=== PATIENT | female | born 1940 | race Caucasian/White ===

== ENCOUNTER 2018-03-03 08:06 | Inpatient (IN) | payer MEDICARE ==
[2018-03-03 08:38] LABS: #Eosinphils 0.1 thou/uL (0.0-0.7); #Lymphocytes 1.4 thou/uL (1.20-3.40); #Monocytes 0.5 thou/uL (0.11-0.59); #Neutrophils 5.5 thou/uL (1.40-6.50); %Basophils 0.6 % (0.0-1.0); %Eosinophils 1.4 % (0.0-10.0); %Lymphocytes 18.4 % (21.0-51.0); %Monocytes 6.9 % (0.0-10.0); %Neutrophils 72.7 % (42.0-75.0); Hemoglobin 13.3 g/dL (12.0-16.0); Mean Corpuscular HGB CONC 32.9 g/dL (32.0-36.0); Mean Corpuscular Hemoglobin 28.6 pg (27.0-31.0); Mean Corpuscular Volume 86.9 fl (81.0-99.0); Mean Platelet Volume 8.3 fL (7.4-10.4); Platelet Count 186 thou/uL (130-400); RBC Distribution Width 12.5 % (11.5-14.5); Red Blood Cell (RBC) Count 4.66 mill/uL (4.20-5.40); White Blood Cell (WBC) Count 7.6 thou/uL (4.8-10.8)
[2018-03-03 08:40] LABS: PTT 28.1 SEC (22.9-36.1); Prothrombin Time 12.8 SEC (12.0-14.7)
[2018-03-03 08:46] LABS: ALT (SGPT) 14 U/L (8-55); AST (SGOT) 14 U/L (5-34); Alkaline Phosphatase 103 U/L (40-150); Anion Gap 14 mmol/L (10-20); BUN (Urea Nitrogen) 14 mg/dL (9.8-20.1); Bilirubin, Total 0.5 mg/dL (0.2-1.2); Calc. Creatinine Clearance 0 mL/min (70-130); Calcium 9.4 mg/dL (7.8-10.44); Carbon Dioxide 26 mmol/L (23-31); Chloride 102 mmol/L (98-107); Estimated GFR-MDRD 57; Globulin 2.9 g/dL (2.4-3.5); Glucose 336 mg/dL (83-110); Potassium 4.3 mmol/L (3.5-5.1); Protein, Total 6.9 g/dL (6.0-8.3); Sodium 138 mmol/L (136-145)
[2018-03-03 08:50] LABS: Troponin I 0.012 ng/mL (< 0.028)
--- NOTE | 2018-03-03 08:58 | CT ---
CT OF THE HEAD WITHOUT CONTRAST: DATE: 03/03/18. COMPARISON: None. HISTORY: Right-sided drift, weakness, stroke alert. TECHNIQUE: Serial axial CT imaging obtained at 5 mm intervals from the vertex through the skull base without con trast. FINDINGS: Small foci of hypodensity noted in the periventricular white matter anteriorly, right greater than le ft, suggesting small-vessel disease. Imaged paranasal sinuses and mastoid air cells well aerated. N o displaced calvarial fracture. No intracranial hemorrhage, midline shift, mass effect, or ventricul ar enlargement. IMPRESSION: No intracranial hemorrhage. Results called to Dr. Nicole 8:20 a.m., 03/03/18. CODE CR POS: MANIS[facility]
[2018-03-03 10:21] LABS: Bilirubin Negative (Negative); Blood, Urine Negative (Negative); Clarity CLEAR (Clear); Glucose, Urine (Dipstick) >=1000 mg/dL (Negative); Leukocyte Moderate (Negative); Nitrite Negative (Negative); Protein, Urine (Dipstick) Negative (Neg-Trace); Specific Gravity, Urine 1.042 (1.002-1.036); Urobilinogen 0.2 mg/dL (0.2-1.0); pH, Urine 6.5 (5.0-9.0)
[2018-03-03 10:24] LABS: Bacteria/HPF None Seen HPF (None Seen); Hyaline Casts/LPF 0-3 HYALINE CAST LPF (0-3 Hyaline); Pathc Cast-AUWi Flag 0.14 (0-2.49); RBC/HPF 0-3 HPF (0-3); Squamous Epithelial 0-3 HPF (0-3); WBC/HPF 21-50 HPF (0-3)
--- NOTE | 2018-03-03 10:37 | CT ---
CONTRAST ENHANCED CTA CAROTID AND INTRACRANIAL CTA: DATE: 03/03/18. HISTORY: Stroke with left-sided symptoms. FINDINGS: A contrast-enhanced CTA is performed. Two-D and 3D reconstructed images performed. Contrast-enhanced CTA carotid and intracranial CT was performed. The aortic arch contains some calcifications. The right brachiocephalic artery is patent. The right and left common carotid arteries are patent. The right and left vertebral arteries are tortuous but patent. Good flow is seen in the distal internal carotid arteries. Right and left internal carotid arteries are patent. Intracranial portion of the ICA including JOSSELYN, MCA vessels are patent. Vertebrobasilar arteries are patent. Posterior cerebral artery is patent. IMPRESSION: Normal carotid and intracranial CTA. Findings called to Dr. Nicole at 8:43 a.m. on 03/03/18. CODE CR
[2018-03-03] MEDS ORDERED: ISOVUE-370 76%-LOCM 1 ML ONE (11:20)
[2018-03-03] MEDS ORDERED: Labetalol HCl 100 MG/20 ML VIAL SLOW IVP PRN (11:33)
[2018-03-03] MEDS ORDERED: Bisacodyl 5 MG TAB PO PRN (11:36)
[2018-03-03 12:01] LABS: Troponin I 0.013 ng/mL (< 0.028)
[2018-03-03 12:18] VITALS: BMI 31.4
[2018-03-03] MEDS ORDERED: Dextrose 5% in Water 1,000 ML IV PRN (13:14)
[2018-03-03] MEDS ORDERED: Dextrose 50% Abboject 50 ML SYRINGE SLOW IVP PRN (13:14)
--- NOTE | 2018-03-03 14:23 | HP ---
CHIEF COMPLAINT: Right-sided weakness. HISTORY OF PRESENT ILLNESS: The patient is a 77-year-old female who has a history of hypertension, d iabetes, and hyperlipidemia. The patient reports that over the last several months she has become la zy about putting medications in her pillbox and has essentially stopped taking them. These include b asically everything, but her metformin. She reports she has been checking her blood sugars at home a nd they have been running in the 250-260 range. Also notes specifically, the patient has not been ta corinne her aspirin. The patient states that she awakened this morning feeling normally, but within a c ouple hours, she noticed when she turned to the right to go to the trash can, she felt like something was not right on her right side. She subsequently felt like she was being pushed to her right side and was dragging her right foot a bit. The right side of her face felt "flushed" and she believes franco grider may have had some slurring of her speech. Her daughter, Helen, who is with her indicates she luis eves her speech is slurred as well. Initially, her symptoms were somewhat intermittent, but became m ore fixed. Presently, she continues to feel like the right side of her face is not normal. The patient states that 1 week ago she was having some trouble with hemorrhoids which she believes is secondary to some chronic constipation. She went to an urgent care clinic and was subsequently refe rred to a surgeon. She was not able to see the surgeon because of some telephone issues at her home. She was unable to set up the appointment. She stated that she has been frustrated with her primary doctor and has decided to switch to Dr. Morton. She went to see him on the and he gave her a "cleanse." She did not have a bowel movement with that until the second day when she took an over-th e-counter laxative. She states that she has been generally constipated, but did have a bowel movemen t yesterday. She also reports that she feels like she has a grapefruit size "knot" or "pod" in her l eft epigastrium. She can only feel this when she is in a standing position, but not when she is supi ne. She has no pain associated with that. REVIEW OF SYSTEMS: General: Denies any changes in her weight or sleep patterns. The patient report s some mild issues with her hearing. No problems with vision, taste or smell. Gastrointestinal: Th e patient has no difficulties with swallowing or diarrhea, but does have the report of constipation. Cardiovascular: Denies chest pain, palpitations or Peripheral edema. Pulmonary. The patient anuradha es cough, shortness of breath or wheezing. Genitourinary: Patient denies dysuria, frequency, noctur ia or incontinence, but does have some urgency. The patient denies any rashes or lesions, other than some ant bites on her legs. Neurologic: The patient denies numbness, weakness or tingling other th an those things mentioned in the history of present illness. Psychiatric: The patient does admit to some anxiety. She is a worrier and worries about many things including her health and believes that has made her a bit depressed. Endo she denies polyuria, polydipsia. PAST MEDICAL HISTORY: Notable for a cholecystectomy, which was due to advanced gallbladder disease 1 year ago. Subsequently, the patient became somewhat septic and was admitted to the hospital with wh at looked like probably pneumonia. She had some demand ischemia at that time and states that she did subsequently undergo a stress test by Dr. Campuzano that was negative. She also has hypertension, di abetes mellitus, chronic constipation, hyperlipidemia. PAST SURGICAL HISTORY: Cholecystectomy, laparoscopic BTL. FAMILY HISTORY: Father with some alcohol-related disease. Her mother at almost 102 years of age. She also has a brother who has had alcohol issues and one that of heart disease and 1 s ister who with dementia. She still has 4 siblings, all are living. SOCIAL HISTORY: Patient denies use of tobacco, alcohol or drugs. She is . ALLERGIES: CODEINE. MEDICATIONS: Current medications have not been fully confirmed yet, but appear to be Glucophage 500 b.i.d., glipizide 5 mg every day, sertraline dose not known, potassium 10 mEq every day, omeprazole 2 0 mg every day, Lasix 20 every day, enalapril 10 every day, Coreg 3.125 b.i.d., atorvastatin 20 mg at bedtime, and aspirin 81 mg every day. Note, we will continue to try to clarify this to her pharmacy . PHYSICAL EXAMINATION: VITAL SIGNS: Temperature 97.4, pulse 70, respirations 18, O2 sat 97% on room air, BP 194/88. GENERAL APPEARANCE: Age appropriate female, in no distress. She is awake, alert, pleasant, cooperat vero. HEENT: PERRL. No OP lesions. NECK: Supple, symmetric without JVD. CARDIOVASCULAR: Regular rate and rhythm with no murmurs, gallops or rubs. LUNGS: Clear to auscultation bilaterally with good chest wall expansion, air exchange. ABDOMEN: Flat, soft, nontender, nondistended, positive bowel sounds, no masses, and no organomegaly. EXTREMITIES: Warm and dry without edema. NEUROLOGIC: The patient does appear to be having a bit of trouble with speech. Otherwise, her crani al nerves are generally intact with motor function; however, she does still have some slight alterati ons of sensation on the right side of her face. Her other musculoskeletal exams are generally normal with very, very subtle weakness on the right side. SKIN: Reveals the noted ant bites on her legs, but no other rashes or lesion. PSYCHIATRIC: The patient appears to have a fairly normal affect. She does almost become tearful whe n asking her about depression, however. LABORATORY DATA: White count 7.6, hemoglobin 13.3, platelets 186. INR is 1.0, PTT 28.1. Chemistrie s are normal. Glucose 336. Urinalysis specific gravity 1.042 with greater than 1000 glucose, modera te leukocyte esterase, 0-3 red cells and 21-50 white cells. IMAGING: CT of the brain shows no bleed some evidence of small vessel disease. CT angiogram shows n ormal carotid and intracranial vasculature. ASSESSMENT AND PLAN: 1. Transient ischemic attack. It appears as though the patient's symptoms are significantly improvi ng. Cannot completely rule out a sustained infarct at this point. We will admit the patient to obse rvation, obtain an MRI of the brain, carotid Dopplers, echocardiogram and consult the stroke team. T he patient will be on aspirin. I discussed the risks and benefits of additional Plavix. I will give her a dose of that now. We will follow up once we know more from the results of her scans. 2. Diabetes mellitus. The patient has not been compliant with her medications and her blood sugars have been running fairly high. We will check a hemoglobin A1c in the morning and continue with Accu- Cheks, sliding scale insulin and will resume her usual medications once we can confirm what they are. 3. Hypertension. We will allow the patient to have some degree of permissive hypertension for now. 4. Hyperlipidemia. We will keep the patient on the potent statin. 5. History of reflux. We will continue with Pepcid b.i.d. 6. DVT prophylaxis with Lovenox. 7. Noncompliance of medications. We will continue to address the patient the need to maintain her m edicine regimen. 8. Constipation. Patient will have p.r.n. medications available to her. Once we are able to evalua te the possibility of a stroke, we may need to evaluate her abdomen more as well. It appears to be p otentially problematic, but not overly urgent at this time. Disposition patient's surrogate decision maker is her daughter, Helen, who is with her now. They wi ll discuss her advance care planning issues. We will talk again about those after that.
--- NOTE | 2018-03-03 14:51 | MRI ---
BRAIN MRI WITHOUT CONTRAST: DATE: 03/03/18. COMPARISON: None. HISTORY: Right-sided drift, weakness, stroke alert. TECHNIQUE: Multiplanar, multisequence MR imaging of the brain is obtained without contrast. FINDINGS: There is a tiny focus of increased signal intensity within the posterior deep white matter of the rig ht frontal region on the diffusion weighted imaging measuring 3 mm. This is seen on image 48. It is difficult to tell if this is on the basis of restricted diffusion given its small size. There is a T2 and FLAIR hyperintense focus in this region. This could represent a small acute infarction or an old punctate infarction with T2 shine-through. There is a focus of increased signal intensity on the diffusion weighted imaging within the posterior aspect of the right cerebellar hemisphere measuring 4 mm. This does appear to have a low signal intensity correlate on the ADC map, suggesting restricte d diffusion on the basis of acute infarction. There is a third area of increased signal intensity on the diffusion weighted imaging, this area is w ithin the posterior aspect of the chele superiorly at the junction with the mid brain on the left. Th is area of signal intensity measures 5 mm. It is hyperintense on the diffusion weighted imaging and may demonstrate a low signal correlate on the ADC map. There is increased T2 and FLAIR signal in thi s region. There are numerous foci of increased T2 and FLAIR signal seen within the periventricular, deep, and s ubcortical white matter, evidence of small-vessel disease. Axial gradient echo imaging demonstrates no evidence for intracranial hemorrhage. Imaged paranasal sinuses and mastoid air cells appear grossly unremarkable. Arterial flow voids at a xial level of the skull base appear grossly unremarkable. Regional bone marrow signal intensity is g rossly unremarkable as well. On axial FLAIR image 6 there is a 1 cm rounded area of increased signal intensity adjacent to the 4th ventricle which may represent an intracranial mass lesion. IMPRESSION: 1. Focus of restricted diffusion measuring 4 mm within the posterior aspect of the right cerebellar hemisphere, evidence of acute infarction. 2. Two additional foci of increased signal intensity on the diffusion weighted imaging are on the ba sis of age-indeterminate ischemia, possibly remote. This includes the dorsal aspect of the left chele superiorly at the junction with the mid brain and the deep white matter of the left frontal lobe pos teriorly. No evidence for intracranial hemorrhage. Significant small vessel disease noted. 3. Focus of increased T2/FLAIR signal noted just inferior to the 4th ventricle on the right measurin g 1 cm. This could represent an intracranial lesion which should be further assessed with MRI with c ontrast media. CODE T POS: [facility]
[2018-03-03 14:56] LABS: Troponin I 0.018 ng/mL (< 0.028)
[2018-03-03] MEDS: HumaLOG 300 UNITS/3 ML VIAL SC PRN (17:04)
[2018-03-03] MEDS: Acetaminophen 325 MG TAB PO PRN (17:05)
--- NOTE | 2018-03-03 20:28 | CON ---
DATE OF CONSULTATION: 03/03/2018 CONSULTING PHYSICIAN: Hospitalist Service. IMPRESSION: 1. 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 2. Diabetes. 3. Hypertension. PLAN: 1. Continue aspirin. 2. Lipitor 20 mg per day. 3. Rehab screening. HISTORY OF PRESENT ILLNESS: Ms. Franco is a 77-year-old white female who was feeling well. This mo rning when she first got up, she started feeling a bit dizzy and noticed that the right side has been becoming weak. She was brought to the hospital for evaluation. MRI of the brain revealed an acute lacunar infarction in the right cerebellum. There were some questionable areas of ischemia in the br ainstem. Her CTA did not show any stenosis in the major vessels. Laboratory studies were unremarkab le other than elevated blood glucose. She had not been taking her aspirin prior to this event. PAST MEDICAL HISTORY: Hypertension, diabetes. SOCIAL HISTORY: No tobacco or alcohol use. ALLERGIES: CODEINE. MEDICATION LIST: Reviewed. FAMILY HISTORY: Noncontributory. REVIEW OF SYSTEMS: No complaint of chest pain, shortness of breath, headache, nausea, vomiting, vert igo or double vision. PHYSICAL EXAMINATION: GENERAL: She is a well-nourished elderly lady sitting up in the bed, in no distress. VITAL SIGNS: Stable. She is afebrile. HEENT: Pupils equal and reactive. Conjunctivae clear. Oropharynx is clear. NECK: Supple. EXTREMITIES: No cyanosis, clubbing or edema. NEUROLOGIC: She was alert and cooperative. Her speech was dysarthric, but fluent. Cranial nerve ex am showed a right facial droop. No nystagmus or ophthalmoplegia was noted. Motor exam showed no ant igravity strength in the right arm and only partial in the right leg. Sensation was intact to touch. Plantar response was upgoing on the right and downgoing on the left. EKG normal sinus rhythm. SUMMARY: This is an elderly lady with a lacunar infarction in the brainstem and fairly significant h emiparesis. Agree with your management and anticipate she will need rehab.
[2018-03-03] MEDS: Famotidine 20 MG TAB PO SCH ×2 (20:57→21:07)
[2018-03-03] MEDS: Atorvastatin Calcium 40 MG TAB PO SCH ×2 (20:57→21:07)
[2018-03-03] MEDS: Ondansetron ODT 4 MG TAB PO PRN (21:01)
[2018-03-04 05:13] LABS: Cardiac Risk 7.5 (Less than 4.5)
[2018-03-04] MEDS ORDERED: Aspirin 81 mg Enteric Coated Tablet PO SCH (09:00)
[2018-03-04] MEDS: Enoxaparin Sodium 40 MG/0.4 ML SYRINGE SC SCH (09:17)
[2018-03-04] MEDS: HumaLOG 300 UNITS/3 ML VIAL SC PRN ×3 (11:31→21:49)
[2018-03-04] MEDS: Clopidogrel Bisulfate 75 MG TAB PO SCH (12:10)
[2018-03-04] MEDS: Famotidine 20 MG TAB PO SCH ×2 (12:10→21:46)
--- NOTE | 2018-03-04 12:31 | RAD ---
MODIFIED BARIUM SWALLOW IN THE PRESENCE OF SPEECH THERAPIST: HISTORY: Dysphagia, oropharyngeal phase, dysphagia following cerebellar infarction, feeding difficulties. FINDINGS: There is laryngeal penetration and aspiration. No persistent pooling of contrast is identified in th e valleculae or piriform sinuses. Please see recommendations of the speech therapist for further management. Fluoro time: 3 minutes. Dose: 1.114 uGy*^cm2. POS: [facility]
--- NOTE | 2018-03-04 13:17 | PDOC.PN ---
- Subjective Encounter Start Date: 03/04/18 Encounter Start Time: 12:00 DONG WELL. NO COMPLAINTS EXCEPT THAT SHE IS NOT A PATIENT PERSON. - Objective Resuscitation Status: Resuscitation Status DNR:Do Not Resuscitate MAR Reviewed: Yes Vital Signs & Weight: Vital Signs (12 hours) Temp Pulse Pulse Pulse Resp BP BP 03/04/18 12:00 98 F 75 18 03/04/18 08:00 97.8 F 73 16 03/04/18 07:26 77 68 180/85 H 182/81 H 03/04/18 04:00 97.0 F L 64 16 BP Pulse Ox 03/04/18 12:00 139/66 94 L 03/04/18 08:00 183/85 H 93 L 03/04/18 07:26 03/04/18 04:00 168/77 H 95 I&O: 03/03/18 03/04/18 03/05/18 06:59 06:59 06:59 Intake Total 240 Balance 240 Result Diagrams: 03/03/18 08:20 03/03/18 08:20 Additional Labs: Accuchecks 03/04/18 03/04/18 03/03/18 10:28 05:53 20:53 POC Glucose 225 H 197 H 193 H 03/03/18 16:32 POC Glucose 221 H Phys Exam - Physical Examination Constitutional: NAD HEENT: PERRLA, oral pharynx no lesions Neck: no JVD, supple Respiratory: no wheezing, no rales, no rhonchi, clear to auscultation bilateral Cardiovascular: RRR, no significant murmur Gastrointestinal: soft, non-tender, no distention Musculoskeletal: no edema, pulses present RIGHT HEMIPLEGIA AND FACIAL DROOP. Psychiatric: normal affect Skin: no rash, normal turgor Dx/Plan (1) CVA (cerebral vascular accident) Code(s): I63.9 - CEREBRAL INFARCTION, UNSPECIFIED Status: Acute Qualifiers: CVA mechanism: unspecified Qualified Code(s): I63.9 - Cerebral infarction, unspecified Plan: NEUROLOGY HAS SEEN THE PATIENT. CONTINUE WITH ANTIPLATELET THERAPY, STATIN AND REHAB. WILL LIKELY NEED INPATIENT REHAB. (2) Hemiplegia affecting dominant side, post-stroke Code(s): I69.359 - HEMIPLGA FOLLOWING CEREBRAL INFARCTION AFFECTING UNSP SIDE Status: Acute Plan: PT/OT. WILL NEED REHAB. (3) Dysphagia as late effect of cerebrovascular accident (CVA) Code(s): I69.391 - DYSPHAGIA FOLLOWING CEREBRAL INFARCTION Status: Acute Plan: D/W SPEECH. ON MODIFIED DIET. WILL NEED RE-EVAL OVER TIME. (4) Advance care planning Code(s): Z71.89 - OTHER SPECIFIED COUNSELING Status: Acute Plan: TALKED WITH THE PATIENT REGARDING THE DIAGNOSIS, PROGNOSIS AND TREATMENT PLAN. ULTIMATELY, SHE HAS DECIDED THAT SHE DOES NOT WANT ANY AGGRESSIVE INTERVENTION LIKE RESUSCITATION OR INTUBATION. 18 MIN. - Plan * ABOVE.
[2018-03-04] MEDS: Atorvastatin Calcium 40 MG TAB PO SCH (21:46)
[2018-03-05] MEDS: HumaLOG 300 UNITS/3 ML VIAL SC PRN ×2 (05:55→10:43)
[2018-03-05] MEDS: Clopidogrel Bisulfate 75 MG TAB PO SCH (09:06)
[2018-03-05] MEDS: Enoxaparin Sodium 40 MG/0.4 ML SYRINGE SC SCH (09:06)
[2018-03-05] MEDS: Famotidine 20 MG TAB PO SCH ×2 (09:06→21:06)
--- NOTE | 2018-03-05 11:34 | PDOC.PN ---
- Subjective Encounter Start Date: 03/05/18 Encounter Start Time: 11:33 SHE HAS BEEN TRYING TO MOVE HER RIGHT ARM AROUND WITH HER LEFT FOR THERAPY. CAN 'T DO THE LEG HERSELF. WANTS SOMEONE TO DO THAT. - Objective Resuscitation Status: Resuscitation Status DNR:Do Not Resuscitate MAR Reviewed: Yes Vital Signs & Weight: Vital Signs (12 hours) Temp Pulse Resp BP Pulse Ox 03/05/18 08:00 98.4 F 85 16 93 L 03/05/18 07:57 98.4 F 85 16 184/91 H 93 L 03/05/18 03:46 97.4 F L 74 20 118/65 93 L 03/04/18 23:55 97.3 F L 81 18 131/67 93 L Weight Admit Weight 172 lb 3.2 oz Weight 172 lb 3.2 oz I&O: 03/04/18 03/05/18 03/06/18 06:59 06:59 06:59 Intake Total 240 400 Balance 240 400 Result Diagrams: 03/03/18 08:20 03/03/18 08:20 Additional Labs: Accuchecks 03/05/18 03/05/18 03/04/18 10:40 05:28 20:09 POC Glucose 301 H 233 H 252 H 03/04/18 03/04/18 17:17 10:28 POC Glucose 252 H 225 H Phys Exam - Physical Examination Constitutional: NAD HEENT: oral pharynx no lesions Neck: no JVD, supple Respiratory: no wheezing, no rales, no rhonchi, clear to auscultation bilateral Cardiovascular: RRR, no significant murmur, no rub Gastrointestinal: soft, non-tender, no distention, positive bowel sounds Musculoskeletal: no edema, pulses present RIGHT HEMIPLEGIA. NORMAL SENSATION RLE. CAN WIGGLE TOES. Psychiatric: normal affect Skin: no rash, normal turgor Dx/Plan (1) CVA (cerebral vascular accident) Code(s): I63.9 - CEREBRAL INFARCTION, UNSPECIFIED Status: Acute Qualifiers: CVA mechanism: unspecified Qualified Code(s): I63.9 - Cerebral infarction, unspecified Plan: NEEDS REHAB. CONTINUING TO MONITOR THE PERMISSIVE POST-CVA HYPERTENSION. CONTINUE ASA, PLAVIX AND STATIN. (2) Hemiplegia affecting dominant side, post-stroke Code(s): I69.359 - HEMIPLGA FOLLOWING CEREBRAL INFARCTION AFFECTING UNSP SIDE Status: Acute Plan: PT, OT (3) Dysphagia as late effect of cerebrovascular accident (CVA) Code(s): I69.391 - DYSPHAGIA FOLLOWING CEREBRAL INFARCTION Status: Acute Plan: APPRECIATE ST. MODIFIED DIET. (4) Advance care planning Code(s): Z71.89 - OTHER SPECIFIED COUNSELING Status: Acute (5) Diabetes Code(s): E11.9 - TYPE 2 DIABETES MELLITUS WITHOUT COMPLICATIONS Status: Acute Qualifiers: Diabetes mellitus type: type 2 Plan: BLOOD SUGARS RUNNING A LITTLE HIGH. WILL ADDRESS WITH SSI. AVOIDING PO'S POSSIBLE DUE TO DYSPHAGIA. (6) Hypertension Code(s): I10 - ESSENTIAL (PRIMARY) HYPERTENSION Status: Chronic Plan: ALLOWING PERMISSIVE HTN. GENERALLY LOW, BUT OCCASIONALLY HIGH. - Plan * STARTING THE PROCESS OF REHAB EVAL/PLACEMENT.
[2018-03-05] MEDS: Acetaminophen 325 MG TAB PO PRN (21:06)
[2018-03-05] MEDS: Atorvastatin Calcium 40 MG TAB PO SCH (21:06)
[2018-03-06] MEDS: HumaLOG 300 UNITS/3 ML VIAL SC PRN ×4 (05:27→20:11)
[2018-03-06] MEDS: Ondansetron ODT 4 MG TAB PO PRN (07:39)
[2018-03-06] MEDS: Clopidogrel Bisulfate 75 MG TAB PO SCH (08:07)
[2018-03-06] MEDS: Famotidine 20 MG TAB PO SCH ×2 (08:07→20:07)
[2018-03-06] MEDS: Enoxaparin Sodium 40 MG/0.4 ML SYRINGE SC SCH (08:07)
--- NOTE | 2018-03-06 15:25 | PDOC.PN ---
- Subjective Encounter Start Date: 03/06/18 Encounter Start Time: 14:00 Pt is Waiting on insurance authorization for rehab. - Objective Resuscitation Status: Resuscitation Status DNR:Do Not Resuscitate MAR Reviewed: Yes Vital Signs & Weight: Vital Signs (12 hours) Temp Pulse Pulse Pulse Resp BP BP 03/06/18 11:29 98.2 F 108 H 18 03/06/18 09:26 104 H 96 141/78 H 173/81 H 03/06/18 08:00 97.5 F L 84 16 03/06/18 07:18 97.5 F L 84 16 03/06/18 03:55 98.2 F 71 16 BP BP BP Pulse Ox 03/06/18 11:29 132/66 93 L 03/06/18 09:26 03/06/18 08:00 92 L 03/06/18 07:18 127/64 92 L 03/06/18 03:55 128/68 96 Weight Admit Weight 172 lb 3.2 oz Weight 172 lb 11.2 oz I&O: 03/05/18 03/06/18 03/07/18 06:59 06:59 06:59 Intake Total 400 1000 Balance 400 1000 Result Diagrams: 03/03/18 08:20 03/03/18 08:20 Additional Labs: Accuchecks 03/06/18 03/06/18 03/05/18 11:15 05:27 21:11 POC Glucose 273 H 238 H 255 H 03/05/18 16:00 POC Glucose 253 H Radiology Reviewed by me: Yes Phys Exam - Physical Examination HEENT: PERRLA, moist MMs Neck: no nodes, no JVD Respiratory: no wheezing, no rales Cardiovascular: RRR, no significant murmur Gastrointestinal: soft, non-tender Musculoskeletal: no edema, pulses present Neurological: normal sensation Lymphatic: no nodes Psychiatric: normal affect, A&O x 3 Dx/Plan (1) CVA (cerebral vascular accident) Code(s): I63.9 - CEREBRAL INFARCTION, UNSPECIFIED Status: Acute Qualifiers: CVA mechanism: unspecified Qualified Code(s): I63.9 - Cerebral infarction, unspecified Comment: Rt Cerebellar an brainstem stroke,s likely from porly controlled HTN, Pt on Aspirin/ Statin.Waiting on Rehab placmeent (2) Diabetes Code(s): E11.9 - TYPE 2 DIABETES MELLITUS WITHOUT COMPLICATIONS Status: Acute Qualifiers: Diabetes mellitus type: type 2 Comment: well controlled on SSI and home Meds. (3) Dysphagia as late effect of cerebrovascular accident (CVA) Code(s): I69.391 - DYSPHAGIA FOLLOWING CEREBRAL INFARCTION Status: Acute Comment: Follow speech recommedations. (4) Hemiplegia affecting dominant side, post-stroke Code(s): I69.359 - HEMIPLGA FOLLOWING CEREBRAL INFARCTION AFFECTING UNSP SIDE Status: Acute (5) Hypertension Code(s): I10 - ESSENTIAL (PRIMARY) HYPERTENSION Status: Chronic Comment: Permisisive HTN, will keep it < 160 - Plan cont current plan of care, PT/OT, public health social worker, speech therapy, incentive spirometry, out of bed/ambulate, DVT proph w/lovenox, DVT proph w/SCDs * . Review of Systems - Review of Systems Eyes: negative: Pain, Vision Change, Conjunctivae Inflammation, Eyelid Inflammation, Redness, Other ENT: negative: Ear Pain, Ear Discharge, Nose Pain, Nose Discharge, Nose Congestion, Mouth Pain, Mouth Swelling, Throat Pain, Throat Swelling, Other Respiratory: negative: Cough, Dry, Shortness of Breath, Hemoptysis, SOB with Excertion, Pleuritic Pain, Sputum, Wheezing Cardiovascular: negative: chest pain, palpitations, orthopnea, paroxysmal nocturnal dyspnea, edema, light headedness, other Gastrointestinal: negative: Nausea, Vomiting, Abdominal Pain, Diarrhea, Constipation, Melena, Hematochezia, Other Musculoskeletal: negative: Neck Pain, Shoulder Pain, Arm Pain, Back Pain, Hand Pain, Leg Pain, Foot Pain, Other - Medications/Allergies Allergies/Adverse Reactions: Allergies Allergy/AdvReac Type Severity Reaction Status Date / Time codeine Allergy Verified 03/03/18 12:21 Medications: Current Medications Acetaminophen (Tylenol) 650 mg PO Q4H PRN PRN Reason: Headache/Fever or Pain Last Admin: 03/05/18 21:06 Dose: 650 mg Aspirin (Aspirin Chewable) 81 mg PO DAILY [facility] Last Admin: 03/06/18 08:07 Dose: 81 mg Atorvastatin Calcium (Lipitor) 40 mg PO HS [facility] Last Admin: 03/05/18 21:06 Dose: 40 mg Bisacodyl (Dulcolax) 10 mg PO DAILYPRN PRN PRN Reason: Constipation Last Admin: 03/06/18 05:50 Dose: 10 mg Clopidogrel Bisulfate (Plavix) 75 mg PO DAILY [facility] Last Admin: 03/06/18 08:07 Dose: 75 mg Dextrose/Water (Dextrose 50%) 25 gm SLOW IVP PRN PRN PRN Reason: Hypoglycemia Enoxaparin Sodium (Lovenox) 40 mg SC 0900 [facility] Last Admin: 03/06/18 08:07 Dose: 40 mg Famotidine (Pepcid) 20 mg PO BID [facility] Last Admin: 03/06/18 08:07 Dose: 20 mg Glucagon (Glucagon) 1 mg IM PRN PRN PRN Reason: Hypoglycemia Dextrose/Water (D5w) 1,000 mls @ 0 mls/hr IV .Q0M PRN; As Directed PRN Reason: Hypoglycemia Insulin Human Lispro (Humalog) 0 units SC .MILD SLIDING SCALE PRN PRN Reason: Mild Correctional Scale Last Admin: 03/06/18 11:20 Dose: 6 unit Labetalol HCl (Normodyne) 20 mg SLOW IVP Q1H PRN PRN Reason: BP > 220/110 Ondansetron HCl (Zofran Odt) 4 mg PO Q6H PRN PRN Reason: Nausea/Vomiting Last Admin: 03/06/18 07:39 Dose: 4 mg Sodium Chloride (Flush - Normal Saline) 10 ml IVF Q12HR [facility] Last Admin: 03/06/18 08:07 Dose: Not Given Sodium Chloride (Flush - Normal Saline) 10 ml IVF PRN PRN PRN Reason: Saline Flush
[2018-03-06] MEDS: Docusate 100 MG CAP PO SCH (20:07)
[2018-03-06] MEDS: Atorvastatin Calcium 40 MG TAB PO SCH (20:08)
[2018-03-06] MEDS: Acetaminophen 325 MG TAB PO PRN (20:08)
[2018-03-07] MEDS: HumaLOG 300 UNITS/3 ML VIAL SC PRN ×2 (06:15→11:37)
[2018-03-07] MEDS: Famotidine 20 MG TAB PO SCH ×2 (08:40→21:33)
[2018-03-07] MEDS: Enoxaparin Sodium 40 MG/0.4 ML SYRINGE SC SCH (08:40)
[2018-03-07] MEDS: Docusate 100 MG CAP PO SCH ×2 (08:40→21:33)
[2018-03-07] MEDS: metFORMIN 500 MG TAB PO SCH ×2 (08:40→16:34)
[2018-03-07] MEDS: Clopidogrel Bisulfate 75 MG TAB PO SCH (08:41)
[2018-03-07] MEDS: glyBURIDE 5 MG TAB PO SCH (08:41)
--- NOTE | 2018-03-07 11:20 | PDOC.PN ---
- Subjective Encounter Start Date: 03/07/18 Encounter Start Time: 07:00 -: old records requested/rev Patient seen and examined for cva, No new complaints. No overnight events - Objective Resuscitation Status: Resuscitation Status DNR:Do Not Resuscitate MAR Reviewed: Yes Vital Signs & Weight: Vital Signs (12 hours) Temp Pulse Resp BP BP BP Pulse Ox 03/07/18 08:00 98.7 F 96 14 03/07/18 07:59 98.7 F 96 14 182/85 H 95 03/07/18 04:26 98.2 F 88 20 138/60 97 03/07/18 00:00 98.0 F 87 18 109/60 95 Weight Admit Weight 172 lb 3.2 oz Weight 172 lb 6.4 oz I&O: 03/06/18 03/07/18 03/08/18 06:59 06:59 06:59 Intake Total 1000 980 Output Total 3 Balance 1000 977 Result Diagrams: 03/03/18 08:20 03/03/18 08:20 Additional Labs: Accuchecks 03/07/18 03/07/18 03/06/18 10:54 06:16 20:12 POC Glucose 211 H 296 H 344 H 03/06/18 03/06/18 16:19 11:15 POC Glucose 200 H 273 H EKG Reviewed by me: Yes (nsr) Phys Exam - Physical Examination Constitutional: NAD HEENT: PERRLA, moist MMs, sclera anicteric Neck: no JVD, supple Respiratory: no wheezing, no rales, no rhonchi Cardiovascular: RRR, no significant murmur, no rub Gastrointestinal: soft, non-tender, no distention, positive bowel sounds Musculoskeletal: no edema, pulses present right side weakness Lymphatic: no nodes Psychiatric: normal affect, A&O x 3 Skin: no rash, normal turgor Dx/Plan (1) Cerebellar stroke, acute Code(s): I63.9 - CEREBRAL INFARCTION, UNSPECIFIED Status: Acute Comment: right side, with right side weakness, on medical therapy (2) Anxiety and depression Code(s): F41.9 - ANXIETY DISORDER, UNSPECIFIED; F32.9 - MAJOR DEPRESSIVE DISORDER, SINGLE EPISODE, UNSPECIFIED Status: Chronic (3) Chronic diastolic (congestive) heart failure Code(s): I50.32 - CHRONIC DIASTOLIC (CONGESTIVE) HEART FAILURE Status: Chronic (4) Diabetes type 2, controlled Code(s): E11.9 - TYPE 2 DIABETES MELLITUS WITHOUT COMPLICATIONS Status: Chronic (5) Dyslipidemia Code(s): E78.5 - HYPERLIPIDEMIA, UNSPECIFIED Status: Chronic (6) GERD (gastroesophageal reflux disease) Code(s): K21.9 - GASTRO-ESOPHAGEAL REFLUX DISEASE WITHOUT ESOPHAGITIS Status: Chronic (7) Hypertension Code(s): I10 - ESSENTIAL (PRIMARY) HYPERTENSION Status: Chronic Comment: Permisisive HTN, will keep it < 160 (8) Moderate tricuspid regurgitation Code(s): I07.1 - RHEUMATIC TRICUSPID INSUFFICIENCY Status: Chronic (9) Obesity (BMI 30.0-34.9) Code(s): E66.9 - OBESITY, UNSPECIFIED Status: Chronic - Plan cont current plan of care, PT/OT, social economist * at this point pt is waiting for rehab pending insurance authorization * medication reviewed as below * symptomatic treatment. Review of Systems - Review of Systems Constitutional: negative: fever, chills, sweats, weakness, malaise, other Eyes: negative: Pain, Vision Change, Conjunctivae Inflammation, Eyelid Inflammation, Redness, Other ENT: negative: Ear Pain, Ear Discharge, Nose Pain, Nose Discharge, Nose Congestion, Mouth Pain, Mouth Swelling, Throat Pain, Throat Swelling, Other Respiratory: negative: Cough, Dry, Shortness of Breath, Hemoptysis, SOB with Excertion, Pleuritic Pain, Sputum, Wheezing Cardiovascular: negative: chest pain, palpitations, orthopnea, paroxysmal nocturnal dyspnea, edema, light headedness, other Gastrointestinal: negative: Nausea, Vomiting, Abdominal Pain, Diarrhea, Constipation, Melena, Hematochezia, Other Genitourinary: negative: Dysuria, Frequency, Incontinence, Hematuria, Retention , Other Musculoskeletal: negative: Neck Pain, Shoulder Pain, Arm Pain, Back Pain, Hand Pain, Leg Pain, Foot Pain, Other Skin: negative: Rash, Lesions, Niels, Bruising, Other Neurological: Weakness, Change in Speech. negative: Numbness, Incoordination, Confusion, Seizures, Other - Medications/Allergies Allergies/Adverse Reactions: Allergies Allergy/AdvReac Type Severity Reaction Status Date / Time codeine Allergy Verified 03/03/18 12:21 Medications: Current Medications Acetaminophen (Tylenol) 650 mg PO Q4H PRN PRN Reason: Headache/Fever or Pain Last Admin: 03/06/18 20:08 Dose: 650 mg Aspirin (Aspirin Chewable) 81 mg PO DAILY [facility] Last Admin: 03/07/18 08:40 Dose: 81 mg Atorvastatin Calcium (Lipitor) 40 mg PO HS [facility] Last Admin: 03/06/18 20:08 Dose: 40 mg Bisacodyl (Dulcolax) 10 mg PO DAILYPRN PRN PRN Reason: Constipation Last Admin: 03/06/18 05:50 Dose: 10 mg Clopidogrel Bisulfate (Plavix) 75 mg PO DAILY [facility] Last Admin: 03/07/18 08:41 Dose: 75 mg Dextrose/Water (Dextrose 50%) 25 gm SLOW IVP PRN PRN PRN Reason: Hypoglycemia Docusate Sodium (Colace) 100 mg PO BID [facility] Last Admin: 03/07/18 08:40 Dose: 100 mg Enoxaparin Sodium (Lovenox) 40 mg SC 0900 [facility] Last Admin: 03/07/18 08:40 Dose: 40 mg Famotidine (Pepcid) 20 mg PO BID [facility] Last Admin: 03/07/18 08:40 Dose: 20 mg Glucagon (Glucagon) 1 mg IM PRN PRN PRN Reason: Hypoglycemia Glyburide (Diabeta) 5 mg PO QAM[facility] Last Admin: 03/07/18 08:41 Dose: 5 mg Dextrose/Water (D5w) 1,000 mls @ 0 mls/hr IV .Q0M PRN; As Directed PRN Reason: Hypoglycemia Insulin Human Lispro (Humalog) 0 units SC .MILD SLIDING SCALE PRN PRN Reason: Mild Correctional Scale Last Admin: 03/07/18 06:15 Dose: 6 unit Labetalol HCl (Normodyne) 20 mg SLOW IVP Q1H PRN PRN Reason: BP > 220/110 Lactulose (Lactulose) 20 gm PO DAILY PRN PRN Reason: COnstipation Last Admin: 03/06/18 17:24 Dose: 20 gm Metformin HCl (Glucophage) 1,000 mg PO BID-[facility] Last Admin: 03/07/18 08:40 Dose: 1,000 mg Ondansetron HCl (Zofran Odt) 4 mg PO Q6H PRN PRN Reason: Nausea/Vomiting Last Admin: 03/06/18 07:39 Dose: 4 mg Sodium Chloride (Flush - Normal Saline) 10 ml IVF Q12HR [facility] Last Admin: 03/07/18 08:41 Dose: Not Given Sodium Chloride (Flush - Normal Saline) 10 ml IVF PRN PRN PRN Reason: Saline Flush
--- NOTE | 2018-03-07 13:56 | DIS ---
PRIMARY CARE PHYSICIAN: Dr. Manpreet Morton DATE OF ADMISSION: 03/03/2018 DATE OF DISCHARGE: Pending. DISCHARGE DISPOSITION: Rehab. PRIMARY DISCHARGE DIAGNOSES: Right cerebellar stroke with right upper and lower extremity weakness a nd oropharyngeal dysphagia. SECONDARY DISCHARGE DIAGNOSES: Anxiety, depression, chronic diastolic heart failure, diabetes type 2 , dyslipidemia, hypertension, gastroesophageal reflux disease, moderate tricuspid regurgitation, obes ity with BMI 31. PRIMARY PROCEDURE/OPERATION: None. RADIOLOGICAL INVESTIGATION: CT brain was negative. CT [place] [facility] [place] and CT angiography of neck n egative, modified barium swallow showed penetration. Echocardiography showed normal EF, moderate tri cuspid regurgitation. SIGNIFICANT LABORATORY DATA: WBC 7.6, hemoglobin 13.3, platelet 186. INR 1.0. Sodium 138, creatini ne 0.95, potassium 4.3, chloride 102. LFT normal. Cardiac enzymes negative x3. LDL 220, cholestero l 330. Triglyceride 330, HDL 44. Urinalysis suggestive of UTI. Urine culture negative. DISCHARGE MEDICATIONS: Aspirin 81 mg p.o. daily, Lipitor 40 mg p.o. at bedtime, Plavix 75 mg p.o. da tristen, Pepcid 20 mg p.o. b.i.d., glyburide 5 mg p.o. daily, Humalog insulin as per sliding scale t.i.d. , metformin 1000 mg p.o. b.i.d. CONTRAINDICATIONS: None. CODE STATUS: DNR. INPATIENT CONSULTANTS: Dr. Roosevelt Gould, neurologist, was following while in hospital. TEST RESULTS PENDING ON DISCHARGE: None. ALLERGIES: CODEINE. DISCHARGE PLAN: Post hospital, the patient will be discharged to rehabilitation. Subsequently, the patient will follow up with primary care physician. HOSPITAL COURSE: A 77-year-old female who was admitted by Dr. Dany Pena. Please see his H&P for further detail. She came to emergency room on 03/03/2018 with right upper and lower extremity weakn ess. She was having facial asymmetry, as well as difficulty swallowing. In the emergency room, the patient had a stroke alert. In the emergency room, CT brain and [facility] [place] [facility] [place] as well as CT an giography of neck was negative. She was admitted to stroke floor. She had neuro check. We did MRI brain which confirmed right cerebellar stroke. The patient was having dense right upper and lower ex tremity weakness. Echocardiography showed moderate to severe tricuspid regurgitation. She was havin g difficulty swallowing and that is why speech therapy did modified barium swallow and based on that assessment, the patient was kept on pureed texture diet with nectar thick liquid diet. Medication gi clarke to be crushed with puree. While in hospital, we adjusted medication as above. She needs rehabilitation. She is waiting for in surance to approve her to go to rehab. She has uncontrolled diabetes. She had uncontrolled choleste rol status. She has underlying noncompliance. While in hospital, we provided patient counseling to be compliant with the treatment. Dietary educat ion given. The patient is seen and examined at bedside today. Please see my progress note from today for furthe r details.
[2018-03-07] MEDS ORDERED: Bisacodyl 10 MG SUPP PR SCH (17:00)
--- NOTE | 2018-03-07 17:49 | RAD ---
RADIOGRAPH ABDOMEN ONE VIEW PORTABLE SUPINE: 03/07/2018 5:12 p.m. HISTORY: A 77-year-old female with acute abdominal pain. FINDINGS: There is retained enteric contrast material in nondilated loops of colon. There is a paucity of smal l bowel gas. No gas filled dilated bowel loops are visualized. Cholecystectomy in the right upper q uadrant. There is enteric contrast material within the lumen of the appendix, ruling out appendiciti s. IMPRESSION: 1. Nonspecific bowel gas pattern. 2. Previous cholecystectomy. POS: [facility]
[2018-03-07] MEDS: Atorvastatin Calcium 40 MG TAB PO SCH (21:33)
[2018-03-08] MEDS: HumaLOG 300 UNITS/3 ML VIAL SC PRN (06:28)
[2018-03-08 08:01] VITALS: BP 150/83; TEMP 97.7
[2018-03-08] MEDS: Famotidine 20 MG TAB PO SCH (09:05)
[2018-03-08] MEDS: Clopidogrel Bisulfate 75 MG TAB PO SCH (09:06)
[2018-03-08] MEDS: Enoxaparin Sodium 40 MG/0.4 ML SYRINGE SC SCH (09:06)
[2018-03-08] MEDS: metFORMIN 500 MG TAB PO SCH (09:06)
[2018-03-08] MEDS: Docusate 100 MG CAP PO SCH (09:06)
[2018-03-08] MEDS: glyBURIDE 5 MG TAB PO SCH (09:07)
--- NOTE | 2018-03-08 09:38 | PDOC.PN ---
- Subjective Encounter Start Date: 03/08/18 Encounter Start Time: 07:00 Patient seen and examined. No new complaints. No overnight events she had good BM yesterday and abdominal pain resolved - Objective Resuscitation Status: Resuscitation Status DNR:Do Not Resuscitate MAR Reviewed: Yes Vital Signs & Weight: Vital Signs (12 hours) Temp Pulse Resp BP Pulse Ox 03/08/18 07:59 97.7 F 88 14 150/83 H 95 03/08/18 04:00 98.2 F 87 18 113/57 L 94 L 03/08/18 00:00 97.6 F 94 18 136/70 95 Weight Admit Weight 172 lb 3.2 oz Weight 162 lb 6 oz I&O: 03/07/18 03/08/18 03/09/18 06:59 06:59 06:59 Intake Total 980 400 Output Total 3 Balance 977 400 Result Diagrams: 03/03/18 08:20 03/03/18 08:20 Additional Labs: Accuchecks 03/08/18 03/07/18 03/07/18 05:26 20:52 16:45 POC Glucose 235 H 224 H 163 H 03/07/18 10:54 POC Glucose 211 H EKG Reviewed by me: Yes (nsr) Phys Exam - Physical Examination Constitutional: NAD HEENT: PERRLA, moist MMs, sclera anicteric Neck: no JVD, supple Respiratory: no wheezing, no rales, no rhonchi Cardiovascular: RRR, no significant murmur, no rub Gastrointestinal: soft, non-tender, no distention, positive bowel sounds Musculoskeletal: no edema, pulses present right side weakness, hemiplegia Lymphatic: no nodes Psychiatric: normal affect, A&O x 3 Skin: no rash, normal turgor Dx/Plan (1) Cerebellar stroke, acute Code(s): I63.9 - CEREBRAL INFARCTION, UNSPECIFIED Status: Acute Comment: right side, with right side weakness, on medical therapy (2) Anxiety and depression Code(s): F41.9 - ANXIETY DISORDER, UNSPECIFIED; F32.9 - MAJOR DEPRESSIVE DISORDER, SINGLE EPISODE, UNSPECIFIED Status: Chronic (3) Chronic diastolic (congestive) heart failure Code(s): I50.32 - CHRONIC DIASTOLIC (CONGESTIVE) HEART FAILURE Status: Chronic (4) Diabetes type 2, controlled Code(s): E11.9 - TYPE 2 DIABETES MELLITUS WITHOUT COMPLICATIONS Status: Chronic (5) Dyslipidemia Code(s): E78.5 - HYPERLIPIDEMIA, UNSPECIFIED Status: Chronic (6) GERD (gastroesophageal reflux disease) Code(s): K21.9 - GASTRO-ESOPHAGEAL REFLUX DISEASE WITHOUT ESOPHAGITIS Status: Chronic (7) Hypertension Code(s): I10 - ESSENTIAL (PRIMARY) HYPERTENSION Status: Chronic Comment: Permisisive HTN, will keep it < 160 (8) Moderate tricuspid regurgitation Code(s): I07.1 - RHEUMATIC TRICUSPID INSUFFICIENCY Status: Chronic (9) Obesity (BMI 30.0-34.9) Code(s): E66.9 - OBESITY, UNSPECIFIED Status: Chronic - Plan cont current plan of care, plan discussed w/ family, PT/OT, administrator social welfare * medication reviewed as below * symptomatic treatment * approved for rehab * see discharge summery from yesterday Review of Systems - Review of Systems Constitutional: negative: fever, chills, sweats, weakness, malaise, other Eyes: negative: Pain, Vision Change, Conjunctivae Inflammation, Eyelid Inflammation, Redness, Other ENT: negative: Ear Pain, Ear Discharge, Nose Pain, Nose Discharge, Nose Congestion, Mouth Pain, Mouth Swelling, Throat Pain, Throat Swelling, Other Respiratory: negative: Cough, Dry, Shortness of Breath, Hemoptysis, SOB with Excertion, Pleuritic Pain, Sputum, Wheezing Cardiovascular: negative: chest pain, palpitations, orthopnea, paroxysmal nocturnal dyspnea, edema, light headedness, other Gastrointestinal: negative: Nausea, Vomiting, Abdominal Pain, Diarrhea, Constipation, Melena, Hematochezia, Other Genitourinary: negative: Dysuria, Frequency, Incontinence, Hematuria, Retention , Other Musculoskeletal: negative: Neck Pain, Shoulder Pain, Arm Pain, Back Pain, Hand Pain, Leg Pain, Foot Pain, Other Skin: negative: Rash, Lesions, Niels, Bruising, Other Neurological: Weakness. negative: Numbness, Incoordination, Change in Speech, Confusion, Seizures, Other - Medications/Allergies Allergies/Adverse Reactions: Allergies Allergy/AdvReac Type Severity Reaction Status Date / Time codeine Allergy Verified 03/03/18 12:21 Medications: Current Medications Acetaminophen (Tylenol) 650 mg PO Q4H PRN PRN Reason: Headache/Fever or Pain Last Admin: 03/06/18 20:08 Dose: 650 mg Aspirin (Aspirin Chewable) 81 mg PO DAILY [facility] Last Admin: 03/08/18 09:05 Dose: 81 mg Atorvastatin Calcium (Lipitor) 40 mg PO HS [facility] Last Admin: 03/07/18 21:33 Dose: 40 mg Bisacodyl (Dulcolax) 10 mg PO DAILYPRN PRN PRN Reason: Constipation Last Admin: 03/06/18 05:50 Dose: 10 mg Clopidogrel Bisulfate (Plavix) 75 mg PO DAILY [facility] Last Admin: 03/08/18 09:06 Dose: 75 mg Dextrose/Water (Dextrose 50%) 25 gm SLOW IVP PRN PRN PRN Reason: Hypoglycemia Docusate Sodium (Colace) 100 mg PO BID [facility] Last Admin: 03/08/18 09:06 Dose: Not Given Enoxaparin Sodium (Lovenox) 40 mg SC 0900 [facility] Last Admin: 03/08/18 09:06 Dose: 40 mg Famotidine (Pepcid) 20 mg PO BID [facility] Last Admin: 03/08/18 09:05 Dose: 20 mg Glucagon (Glucagon) 1 mg IM PRN PRN PRN Reason: Hypoglycemia Glyburide (Diabeta) 5 mg PO QAM[facility] Last Admin: 03/08/18 09:07 Dose: 5 mg Dextrose/Water (D5w) 1,000 mls @ 0 mls/hr IV .Q0M PRN; As Directed PRN Reason: Hypoglycemia Insulin Human Lispro (Humalog) 0 units SC .MILD SLIDING SCALE PRN PRN Reason: Mild Correctional Scale Last Admin: 03/08/18 06:28 Dose: 5 unit Labetalol HCl (Normodyne) 20 mg SLOW IVP Q1H PRN PRN Reason: BP > 220/110 Lactulose (Lactulose) 20 gm PO DAILY PRN PRN Reason: COnstipation Last Admin: 03/07/18 16:33 Dose: 20 gm Metformin HCl (Glucophage) 1,000 mg PO BID[facility] Last Admin: 03/08/18 09:06 Dose: 1,000 mg Ondansetron HCl (Zofran Odt) 4 mg PO Q6H PRN PRN Reason: Nausea/Vomiting Last Admin: 03/06/18 07:39 Dose: 4 mg Sodium Chloride (Flush - Normal Saline) 10 ml IVF Q12HR [facility] Last Admin: 03/08/18 09:07 Dose: Not Given Sodium Chloride (Flush - Normal Saline) 10 ml IVF PRN PRN PRN Reason: Saline Flush
--- NOTE | 2018-03-08 12:05 | ADD-DIS ---
[facility] The patient was discharged yesterday, but she did not have any approval from her in surance to go to rehab and that is why discharge was canceled. At the same time, the patient also st arted having crampy abdominal pain. We did x-ray abdomen which showed nonspecific bowel gas pattern, but she was constipated and that is why we gave her Dulcolax suppository and after that she had larg e bowel movement and her abdominal pain resolved. We already did paperwork yesterday. Discharge selene cordova was dictated yesterday. The patient is seen and examined at bedside today. Plan of care discus sed with the family member. Today, patient is stable for discharge to go to rehabilitation.
== END 2018-03-08 10:06 | DRG 65 ==
LOC: ERS 08:06 → 2SE 11:49 → OBSVTOIN 15:54
PROVIDERS: ADMIT Internal Medicine; ATTEND Internal Medicine
DX: I63.9 Cerebral infarction, unspecified (principal); G81.91 Hemiplegia, unspecified affecting right dominant side; I50.32 Chronic diastolic (congestive) heart failure; E78.5 Hyperlipidemia, unspecified; E11.65 Type 2 diabetes mellitus with hyperglycemia; K21.9 Gastro-esophageal reflux disease without esophagitis; R13.12 Dysphagia, oropharyngeal phase; I11.0 Hypertensive heart disease with heart failure; K59.09 Other constipation; F41.9 Anxiety disorder, unspecified; F32.9 Major depressive disorder, single episode, unspecified; I07.1 Rheumatic tricuspid insufficiency; Z66 Do not resuscitate; Z91.14 Patient's other noncompliance with medication regimen; Z88.5 Allergy status to narcotic agent; Z79.82 Long term (current) use of aspirin; Z79.84 Long term (current) use of oral hypoglycemic drugs; Z79.899 Other long term (current) drug therapy
CPT/HCPCS: 36415; 36416; 70450; 70496; 70498; 70551; 74018; 74230; 80053; 80061; 81003; 81015; 82553; 83036; 84484; 85025; 85610; 85730; 87086; 93005; 93306; A4216; G8978-GP-CL; G8979-GP-CK; G8987-GO-CM; G8988-GO-CK; G8996-GN-CL; G8996-GN-CM; G8997-GN-CJ; G8997-GN-CK; J1650; Q0162

== ENCOUNTER 2018-06-09 21:33 | Emergency (ER) | payer MEDICARE ==
[2018-06-09] MEDS ORDERED: Acetaminophen 325 MG TAB ONE (22:10)
[2018-06-09 22:26] LABS: #Basophils 0.1 thou/uL (0.0-0.2); #Eosinphils 0.2 thou/uL (0.0-0.7); #Lymphocytes 1.8 thou/uL (1.20-3.40); #Monocytes 0.9 thou/uL (0.11-0.59); #Neutrophils 8.8 thou/uL (1.40-6.50); %Basophils 0.8 % (0.0-1.0); %Eosinophils 2.1 % (0.0-10.0); %Monocytes 7.3 % (0.0-10.0); %Neutrophils 74.8 % (42.0-75.0); Hemoglobin 11.2 g/dL (12.0-16.0); INR-International Normal Ratio 0.9; Mean Corpuscular HGB CONC 33.9 g/dL (32.0-36.0); Mean Corpuscular Hemoglobin 29.2 pg (27.0-31.0); PTT 29.6 SEC (22.9-36.1); Platelet Count 240 thou/uL (130-400); Prothrombin Time 12.3 SEC (12.0-14.7); RBC Distribution Width 12.8 % (11.5-14.5); Red Blood Cell (RBC) Count 3.85 mill/uL (4.20-5.40); White Blood Cell (WBC) Count 11.8 thou/uL (4.8-10.8)
[2018-06-09 22:32] LABS: Anion Gap 15 mmol/L (10-20); BUN (Urea Nitrogen) 18 mg/dL (9.8-20.1); Calc. Creatinine Clearance 0 mL/min (70-130); Calcium 9.8 mg/dL (7.8-10.44); Carbon Dioxide 27 mmol/L (23-31); Chloride 102 mmol/L (98-107); Estimated GFR-MDRD 66; Glucose 191 mg/dL (83-110); Potassium 4.1 mmol/L (3.5-5.1); Sodium 140 mmol/L (136-145)
--- NOTE | 2018-06-09 22:51 | CT ---
CT BRAIN 06/09/18 HISTORY: Fall. Noncontrast enhanced CT images of the brain is obtained on 06/09/18. Comparison made to previous exam from 03/03/18. Noncontrast enhanced CT images of the brain demonstrate areas of old infarction in the right anterola teral white matter of the basal ganglia as well as in the left posterior limb of the internal capsule . These all appear to be old and are unchanged. No evidence of acute intracranial masses, hemorrhages, strokes or contusions seen. IMPRESSION: Right and left areas of deep white matter infarctions. There is also an area of old infarction in the right basal ganglia. No acute intracranial pathology seen. POS: [facility]
--- NOTE | 2018-06-09 22:52 | RAD ---
ONE VIEW CHEST: 06/09/18 HISTORY: Trauma. AP view chest obtained on 06/09/18. Comparison made to previous exam from 02/23/17. AP view chest demonstrates the lungs to be well aerated. No evidence of active intrathoracic disease seen. No evidence of effusions, pneumonia or pneumothorax seen. IMPRESSION: Unremarkable AP view chest. POS: [facility]
== END 2018-06-09 22:53 | disposition home or self-care (01) ==
LOC: SCSER 21:33
DX: S00.03XA Contusion of scalp, initial encounter (principal); E11.9 Type 2 diabetes mellitus without complications; E78.5 Hyperlipidemia, unspecified; I13.0 Hypertensive heart and chronic kidney disease with heart failure and stage 1 through stage 4 chronic kidney disease, or unspecified chronic kidney disease; I50.9 Heart failure, unspecified; N18.9 Chronic kidney disease, unspecified; F32.9 Major depressive disorder, single episode, unspecified; F41.9 Anxiety disorder, unspecified; Z79.899 Other long term (current) drug therapy; Z79.84 Long term (current) use of oral hypoglycemic drugs; Z79.82 Long term (current) use of aspirin; W18.30XA Fall on same level, unspecified, initial encounter
CPT/HCPCS: 70450; 71045; 80048; 85025; 85610; 85730

== ENCOUNTER 2018-06-18 10:48 | Emergency (ER) | payer MEDICARE ==
--- NOTE | 2018-06-18 11:17 | RAD ---
RIGHT HIP TWO VIEWS: History: Trauma. Right hip pain. FINDINGS/IMPRESSION: There are degenerative changes present. No definite fracture or dislocation is identified. POS: [facility]
--- NOTE | 2018-06-18 11:23 | RAD ---
AP PELVIS: History: Trauma. Right hip pain. FINDINGS/IMPRESSION: No definite fracture or dislocation is seen. There are degenerative changes in the lower lumbar spine and hip joints. POS: [facility]
--- NOTE | 2018-06-18 12:14 | CT ---
CT BRAIN: HISTORY: Right-sided deficit. Previous CVA. The patient has had a recent fall and bruising. FINDINGS: Noncontrast enhanced CT images of the brain are obtained from the base of the skull through the verte x. Brain and bone windows are obtained. CT images of the brain demonstrate mild cortical atrophy and deep white matter ischemic changes. Old areas of bilateral basal ganglion stroke are seen. No evidence of acute intracranial abnormalities seen. Some old stroke is also seen in the right caudate body. IMPRESSION: No evidence of acute intracranial pathology is seen. POS: [facility]
== END 2018-06-18 10:55 | disposition home or self-care (01) ==
LOC: ERS 10:48
DX: S70.01XA Contusion of right hip, initial encounter (principal); E11.9 Type 2 diabetes mellitus without complications; E78.5 Hyperlipidemia, unspecified; I13.0 Hypertensive heart and chronic kidney disease with heart failure and stage 1 through stage 4 chronic kidney disease, or unspecified chronic kidney disease; I50.9 Heart failure, unspecified; N18.9 Chronic kidney disease, unspecified; F41.9 Anxiety disorder, unspecified; F32.9 Major depressive disorder, single episode, unspecified; Z79.899 Other long term (current) drug therapy; Z79.84 Long term (current) use of oral hypoglycemic drugs; Z79.82 Long term (current) use of aspirin; W19.XXXA Unspecified fall, initial encounter
CPT/HCPCS: 70450; 72170

== ENCOUNTER 2018-08-18 09:30 | Outpatient (CLI) | payer MEDICARE | END 2018-08-18 09:31 | disposition home or self-care (01) | PROVIDERS: ATTEND Family Medicine | DX: Z74.09 Other reduced mobility (principal) | CPT/HCPCS: 97139; G8978; G8979; G8980 ==

== ENCOUNTER 2018-08-31 12:45 | Emergency (ER) | payer MEDICARE ==
[2018-08-31 13:23] LABS: #Basophils 0.1 thou/uL (0.0-0.2); #Eosinphils 0.2 thou/uL (0.0-0.7); #Lymphocytes 1.8 thou/uL (1.20-3.40); #Monocytes 0.6 thou/uL (0.11-0.59); #Neutrophils 4.4 thou/uL (1.40-6.50); %Basophils 1.1 % (0.0-1.0); %Eosinophils 3.4 % (0.0-10.0); %Lymphocytes 25.6 % (21.0-51.0); %Monocytes 8.1 % (0.0-10.0); %Neutrophils 61.9 % (42.0-75.0); Hemoglobin 12.9 g/dL (12.0-16.0); Mean Corpuscular HGB CONC 31.6 g/dL (32.0-36.0); Mean Corpuscular Hemoglobin 27.2 pg (27.0-31.0); Mean Platelet Volume 8.4 fL (7.4-10.4); Platelet Count 233 thou/uL (130-400); RBC Distribution Width 13.6 % (11.5-14.5); Red Blood Cell (RBC) Count 4.72 mill/uL (4.20-5.40); White Blood Cell (WBC) Count 7.1 thou/uL (4.8-10.8)
[2018-08-31 13:57] LABS: ALT (SGPT) 18 U/L (8-55); AST (SGOT) 25 U/L (5-34); Albumin 4.2 g/dL (3.4-4.8); Alkaline Phosphatase 89 U/L (40-150); Anion Gap 18 mmol/L (10-20); BUN (Urea Nitrogen) 14 mg/dL (9.8-20.1); Bilirubin, Total 0.3 mg/dL (0.2-1.2); Calc. Creatinine Clearance 0 mL/min (70-130); Calcium 10.1 mg/dL (7.8-10.44); Carbon Dioxide 20 mmol/L (23-31); Chloride 105 mmol/L (98-107); Estimated GFR-MDRD 72; Globulin 3.5 g/dL (2.4-3.5); Glucose 105 mg/dL (83-110); Potassium 4.2 mmol/L (3.5-5.1); Protein, Total 7.7 g/dL (6.0-8.3); Sodium 139 mmol/L (136-145)
--- NOTE | 2018-08-31 14:02 | CT ---
CT HEAD WITHOUT CONTRAST: Date: 08-31-18 Comparison: 06-17-18 History: Hypertension, weakness. Technique: Axial CT imaging at 5 mm intervals from vertex through the skull base without contrast. FINDINGS: The imaged paranasal sinuses and mastoid air cells appear well aerated. No displaced calvarial fractu re. No intracranial hemorrhage, midline shift, mass effect or ventricular enlargement. Foci of hypodensit y are again seen in the region of the posterior left putamen and the periventricular white matter bruce r the frontal horn of the right lateral ventricle, evidence of stable prior infarction. IMPRESSION: Stable head CT. No intracranial hemorrhage. POS: [facility]
[2018-08-31 14:23] LABS: Bilirubin Negative (Negative); Blood, Urine Negative (Negative); Clarity CLEAR (Clear); Glucose, Urine (Dipstick) Negative (Negative); Leukocyte Moderate (Negative); Nitrite Negative (Negative); Protein, Urine (Dipstick) Negative (Neg-Trace); Urobilinogen 0.2 mg/dL (0.2-1.0)
[2018-08-31 14:26] LABS: Bacteria/HPF None Seen HPF (None Seen); Hyaline Casts/LPF 0-3 HYALINE CAST LPF (0-3 Hyaline); Pathc Cast-AUWi Flag 0.87 (0-2.49); RBC/HPF 0-3 HPF (0-3); Squamous Epithelial 0-3 HPF (0-3)
--- NOTE | 2018-09-01 13:04 | EKG ---
Test Reason : HYPERTENSION Blood Pressure : / mmHG Vent. Rate : 079 BPM Atrial Rate : 079 BPM P-R Int : 162 ms QRS Dur : 084 ms QT Int : 394 ms P-R-T Axes : 038 032 038 degrees QTc Int : 451 ms Normal sinus rhythm Normal ECG Confirmed by GISSEL ELAINE ([id number]), primer expeditor and drier YOUSIF TANG ([id number] on 09/01/2018 1:04:06 PM Referred By: Confirmed By:GISSEL ELAINE
== END 2018-08-31 16:21 | disposition home or self-care (01) ==
LOC: ERS 12:45
DX: N39.0 Urinary tract infection, site not specified (principal); E78.5 Hyperlipidemia, unspecified; F41.9 Anxiety disorder, unspecified; I11.0 Hypertensive heart disease with heart failure; I50.9 Heart failure, unspecified; E11.9 Type 2 diabetes mellitus without complications
CPT/HCPCS: 36415; 70450; 80053; 81003; 81015; 83880; 84484; 85025; 93005

== ENCOUNTER 2019-05-27 22:49 | Emergency (ER) | payer MEDICARE ==
--- NOTE | 2019-05-27 23:31 | CT ---
EXAM: CT brain without contrast HISTORY: Fall with bump on the back of her head. Patient is on blood thinners. COMPARISON: 08/31/2018 TECHNIQUE: Multiple contiguous axial images were obtained and a CT of the brain without contrast. FINDINGS: There are scattered hypodensities in the subcortical and periventricular white matter consi stent with small vessel ischemic disease. There is no evidence of hydrocephalus, intracranial hemorrhage, or extra-axial fluid collection. Soft tissue swelling is seen in the left occipital scalp. The calvarium is unremarkable. The visualiz ed paranasal sinuses and mastoid air cells are well aerated. IMPRESSION: No evidence of acute intracranial abnormality
--- NOTE | 2019-05-27 23:31 | RAD ---
Exam: Single view of the pelvis HISTORY: Fall with pelvic pain COMPARISON: 06/18/2018 FINDINGS: A single view the pelvis shows no evidence of acute fracture or dislocation. No degenerativ e changes seen in either hip. IMPRESSION: No evidence of acute osseous abnormality.
--- NOTE | 2019-05-27 23:33 | CT ---
EXAM: CT of the cervical spine without contrast HISTORY: Fall with neck pain COMPARISON: None TECHNIQUE: Multiple contiguous axial images were obtained in a CT of the cervical spine without contr ast. Sagittal and coronal reformats were performed. FINDINGS: The vertebral bodies and intervertebral discs demonstrate normal height and alignment witho ut fracture or subluxation. Mild to moderate posterior facet disease is seen in the cervical spine. No prevertebral soft tissue swelling is seen. The posterior facets are well aligned. Normal alignment of the skull base with the cervical spine is seen. The lung apices and cervical soft tissues are unremarkable. IMPRESSION: No evidence of acute osseous abnormality of the cervical spine.
[2019-05-27 23:56] LABS: #Basophils 0.1 thou/uL (0.0-0.2); #Eosinphils 0.3 thou/uL (0.0-0.7); #Lymphocytes 1.7 thou/uL (1.20-3.40); #Monocytes 0.6 thou/uL (0.11-0.59); #Neutrophils 4.5 thou/uL (1.40-6.50); %Basophils 0.7 % (0.0-1.0); %Eosinophils 3.6 % (0.0-10.0); %Monocytes 8.2 % (0.0-10.0); %Neutrophils 63.5 % (42.0-75.0); Hemoglobin 11.7 g/dL (12.0-16.0); Mean Corpuscular HGB CONC 33.2 g/dL (32.0-36.0); Mean Corpuscular Hemoglobin 29.5 pg (27.0-31.0); Mean Corpuscular Volume 88.8 fL (78.0-98.0); Mean Platelet Volume 8.1 fL (7.4-10.4); Platelet Count 176 thou/uL (130-400); RBC Distribution Width 12.9 % (11.5-14.5); Red Blood Cell (RBC) Count 3.98 mill/uL (4.20-5.40)
[2019-05-28 00:01] LABS: PTT 31.8 SEC (22.9-36.1); Prothrombin Time 13.1 SEC (12.0-14.7)
[2019-05-28 00:21] LABS: ALT (SGPT) 16 U/L (8-55); AST (SGOT) 22 U/L (5-34); Albumin 3.9 g/dL (3.4-4.8); Alkaline Phosphatase 72 U/L (40-150); Anion Gap 13 mmol/L (10-20); BUN (Urea Nitrogen) 17 mg/dL (9.8-20.1); Bilirubin, Total 0.4 mg/dL (0.2-1.2); Calc. Creatinine Clearance 0 mL/min (70-130); Calcium 10.2 mg/dL (7.8-10.44); Carbon Dioxide 28 mmol/L (23-31); Chloride 103 mmol/L (98-107); Estimated GFR-MDRD 63; Globulin 2.5 g/dL (2.4-3.5); Glucose 108 mg/dL (83-110); Lipase 49 U/L (8-78); Magnesium 1.6 mg/dL (1.6-2.6); Potassium 4.1 mmol/L (3.5-5.1); Protein, Total 6.4 g/dL (6.0-8.3); Sodium 140 mmol/L (136-145)
== END 2019-05-28 00:24 | disposition home or self-care (01) ==
LOC: ERS 22:49
DX: S00.03XA Contusion of scalp, initial encounter (principal); I13.0 Hypertensive heart and chronic kidney disease with heart failure and stage 1 through stage 4 chronic kidney disease, or unspecified chronic kidney disease; E11.22 Type 2 diabetes mellitus with diabetic chronic kidney disease; I50.9 Heart failure, unspecified; E78.5 Hyperlipidemia, unspecified; E78.00 Pure hypercholesterolemia, unspecified; N18.9 Chronic kidney disease, unspecified; F32.9 Major depressive disorder, single episode, unspecified; F41.9 Anxiety disorder, unspecified; W22.8XXA Striking against or struck by other objects, initial encounter
CPT/HCPCS: 36415; 70450; 72125; 72170; 80053; 83690; 83735; 85025; 85610; 85730

== ENCOUNTER 2020-12-05 12:49 | Outpatient (CLI) | payer MEDICARE | END 2020-12-05 12:50 | disposition home or self-care (01) | LOC: BICRAD 12:49 | PROVIDERS: ATTEND Student in an Organized Health Care Education/Training Program | DX: M25.561 Pain in right knee (principal) ==

== ENCOUNTER 2020-12-27 22:13 | Emergency (ER) | payer MEDICARE ==
[2020-12-28] MEDS ORDERED: traMADol HCl 50 MG TAB ONE (00:53)
== END 2020-12-28 01:55 | disposition home or self-care (01) ==
LOC: ERS 22:13
DX: M54.41 Lumbago with sciatica, right side (principal); I13.0 Hypertensive heart and chronic kidney disease with heart failure and stage 1 through stage 4 chronic kidney disease, or unspecified chronic kidney disease; E11.22 Type 2 diabetes mellitus with diabetic chronic kidney disease; I50.9 Heart failure, unspecified; N18.9 Chronic kidney disease, unspecified; E78.5 Hyperlipidemia, unspecified; E78.00 Pure hypercholesterolemia, unspecified; Z79.899 Other long term (current) drug therapy; Z79.84 Long term (current) use of oral hypoglycemic drugs; Z79.82 Long term (current) use of aspirin; Z86.73 Personal history of transient ischemic attack (TIA), and cerebral infarction without residual deficits
CPT/HCPCS: 72131

== ENCOUNTER 2021-08-09 16:19 | Emergency (ER) | payer MEDICARE ==
[2021-08-09] MEDS ORDERED: Oxymetazoline HCl 0.05% (30 ML BOT) ONE (16:26)
[2021-08-09 16:53] LABS: #Basophils 0.1 thou/uL (0.0-0.2); #Eosinphils 0.2 thou/uL (0.0-0.7); #Lymphocytes 2.4 thou/uL (1.20-3.40); #Monocytes 0.8 thou/uL (0.11-0.59); #Neutrophils 6.8 thou/uL (1.40-6.50); %Basophils 0.7 % (0.0-1.0); %Eosinophils 1.8 % (0.0-10.0); %Lymphocytes 23.2 % (21.0-51.0); %Monocytes 7.8 % (0.0-10.0); %Neutrophils 66.5 % (42.0-75.0); Hemoglobin 11.4 g/dL (12.0-16.0); Mean Corpuscular HGB CONC 33.6 g/dL (32.0-36.0); Mean Corpuscular Hemoglobin 29.8 pg (27.0-31.0); Mean Corpuscular Volume 88.8 fL (78.0-98.0); Mean Platelet Volume 7.5 fL (7.4-10.4); Platelet Count 260 thou/uL (130-400); RBC Distribution Width 13.1 % (11.5-14.5); Red Blood Cell (RBC) Count 3.81 mill/uL (4.20-5.40); White Blood Cell (WBC) Count 10.2 thou/uL (4.8-10.8)
[2021-08-09 17:02] LABS: INR-International Normal Ratio 0.9
== END 2021-08-09 17:56 | disposition home or self-care (01) ==
LOC: ERS 16:19
DX: R04.0 Epistaxis (principal); I13.0 Hypertensive heart and chronic kidney disease with heart failure and stage 1 through stage 4 chronic kidney disease, or unspecified chronic kidney disease; I50.9 Heart failure, unspecified; E78.5 Hyperlipidemia, unspecified; N18.9 Chronic kidney disease, unspecified; E11.22 Type 2 diabetes mellitus with diabetic chronic kidney disease; Z79.82 Long term (current) use of aspirin; Z79.84 Long term (current) use of oral hypoglycemic drugs; Z79.02 Long term (current) use of antithrombotics/antiplatelets
CPT/HCPCS: 36415; 85025; 85610; 99283

== ENCOUNTER 2022-11-02 19:04 | Emergency (ER) | payer MEDICARE ==
[2022-11-02] MEDS ORDERED: Acetaminophen 500 MG TAB ONE ×2 (22:27→22:29)
== END 2022-11-02 23:35 | disposition home or self-care (01) ==
LOC: ERS 19:04
DX: S20.212A Contusion of left front wall of thorax, initial encounter (principal); I11.0 Hypertensive heart disease with heart failure; I50.9 Heart failure, unspecified; E11.9 Type 2 diabetes mellitus without complications; E78.00 Pure hypercholesterolemia, unspecified; W19.XXXA Unspecified fall, initial encounter; Z79.84 Long term (current) use of oral hypoglycemic drugs; Z79.899 Other long term (current) drug therapy
CPT/HCPCS: 71250